=== PATIENT | female | born 1955 | race Caucasian/White ===

== ENCOUNTER 2018-06-13 09:42 | Day surgery (SDC) | payer BC ==
[2018-06-13] MEDS ORDERED: ONDANSETRON HCL IV 4 MG/2 ML VIAL IVP ONE (09:43)
[2018-06-13] MEDS ORDERED: METHYLPREDNISOLONE 40MG/VIAL IM ONE (09:43)
[2018-06-13] MEDS ORDERED: DEXAMETHASONE 4 MG/ML 1ML VIAL IVP ONE (09:43)
[2018-06-13] MEDS ORDERED: BUPIVACAINE 0.25% W/EPI MPF 30ML VIAL IVP ONE (09:43)
[2018-06-13] MEDS ORDERED: LIDOCAINE 2% MDV (20MG/ML) 20ML VIAL IV ONE (09:43)
[2018-06-13] MEDS ORDERED: MIDAZOLAM HCL 2MG/2ML VIAL IV ONE (09:43)
[2018-06-13] MEDS ORDERED: FENTANYL PF 100MCG/2ML VIAL IV ONE (09:43)
[2018-06-13] MEDS ORDERED: PROPOFOL 10 MG/ML VIAL IV ONE (09:43)
[2018-06-13] MEDS ORDERED: DESFLURANE 240 ML BTL INH ONE (09:43)
[2018-06-13] MEDS ORDERED: CEFAZOLIN 2 Gram 2 GM/50 ML BAG IVPB ONE (10:00)
[2018-06-13] MEDS ORDERED: FAMOTIDINE 20MG TABLET PO ONE (10:00)
[2018-06-13] MEDS ORDERED: ACETAMINOPHEN 1,000 MG/100 ML BTL IV ONE (10:00)
[2018-06-13] MEDS ORDERED: METOCLOPRAMIDE 10 MG TABLET PO ONE (10:00)
[2018-06-13] MEDS ORDERED: SCOPOLAMINE 1 PATCH TDSY TD ONE (10:00)
--- NOTE | 2018-06-16 17:45 | Operative Note ---
DATE OF SURGERY: 06/13/18 PREOPERATIVE DIAGNOSES: LEFT KNEE ARTHROSIS AND POSSIBLE MENISCUS TEAR. POSTOPERATIVE DIAGNOSES: LEFT KNEE ARTHROSIS AND POSSIBLE MENISCUS TEAR. PROCEDURE: 1. DIAGNOSTIC ARTHROSCOPY. 2. INTRAOPERATIVE ARTHROSCOPIC DEBRIDEMENT, CHONDROPLASTY, MICROFRACTURE OF MEDIAL FEMORAL CONDYLE. 3. ARTHROSCOPIC PARTIAL POSTERIOR HORN LATERAL MENISCECTOMY. SURGEON: TAO DUNHAM M.D. ANESTHESIA: GENERAL ENDOTRACHEAL. COMPLICATIONS: NONE. BLOOD LOSS: MINIMAL. OPERATIVE FINDINGS: Grade 4 area about a quarter size, half dollar size area in the central weightbearing portion of the medial femoral condyle extending out laterally to more grade 3 and meniscus here is intact and the other cartilage was intact. The ACL and PCL were intact. Significant synovitis and inflammation, neovascular disease throughout the entire knee of all three compartments. Complex tear of the posterior horn of the medial meniscus and degenerative tear to that. INDICATIONS FOR OPERATION: This is an 63-year-old female who has had persistent pain and dysfunction in the knee for several months. She has failed nonoperative treatment and she is going out of town on a big trip and she wished to proceed with arthroscopic surgery at this point in hope it gives more effective and lasting relief prior to her trip. I explained that she is likely felt to have a meniscus tear. She had classic symptoms and very likely and she does have arthrosis with joint space narrowing on flexion weightbearing views and she is scheduled for the procedures above. I explained to her all of the risks and benefits thoroughly in detail for the diagnoses and procedures including but no limited to infection, nerve injury, vessel injury, persistent pain, stiffness, numbness and tingling in her knee, need for further procedures , the fact that she has arthrosis of the knee and that this procedure would not cure that condition and she could require further procedures such as even knee replacement, blood clot and all of her questions were answered. Rehab and course were outlined and she agreed to proceed. PROCEDURE: The patient brought to O.R. and placed in the supine position for arthroscopic surgery. General endotracheal anesthesia was induced and her left lower extremity and knee were prepped and draped in the usual sterile fashion. The left knee was prepped again with ChloraPrep after it was draped. Intraoperative time-out was performed. Preoperatively, the exam revealed full knee range of motion. No knee instability. Next, a standard superior lateral inflow port was established. Inferior medial and lateral ports were established and diagnostic arthroscopy performed. The suprapatellar pouch had significant neovascularization, synovitis, inflammation throughout. Again, the medial gutter the same, severe inflammation. Again, the medial compartment revealed extensive cartilage wear in the weightbearing portion grade 4 medially based and extending lateral to more grade 3, about a quarter size area like grade 4 there extending to 2-3 cm medially. We then debrided this area, lay to bleeding bone surface space and planned doing microfracture. We inserted several microfracture picks about 3-4 mm deep, about 4-5 mm par and we had good bleeding bone in turn after that. Intercondylar notch, again, severe inflammation, otherwise the ACL and PCL are intact. The lateral compartment, the cartilage here is grade 1 chondromalacia so not serious, however, she did have a complex tear of the posterior horn of the lateral meniscus. We used a combination of basket biter and shaver and removed about 50% width of the posterior horn, contour middle horn and anterior horn were intact. The lateral gutter was normal. The patellofemoral compartment had some mild grade 1 chondromalacia only. Again , severe synovitis inferiorly and we did a synovectomy in all three compartments as well. This completed our procedures. The scope and equipment were removed. The wound was covered with Xeroform gauze. Sterile dressing applied. KHUSHBU wrap. The patient tolerated the procedures well. No intraoperative complications. All sponge, needle, and blade counts correct. Recovery Room stable, neurovascularly intact. She will be discharged as an outpatient and have home therapy nurse, follow-up in two weeks. cc: Dr. Jonathan Mendez JOB NUMBER: [id number] [facility]
== END 2018-06-13 14:55 | disposition home or self-care (01) ==
LOC: SUR 09:42
PROVIDERS: ATTEND Orthopaedic Surgery
DX: M17.12 Unilateral primary osteoarthritis, left knee (principal); S83.232A Complex tear of medial meniscus, current injury, left knee, initial encounter; G47.33 Obstructive sleep apnea (adult) (pediatric)
CPT/HCPCS: 29881; 01400; J2405; J3010; J0690; J1030